=== PATIENT | female | born 1985 | race Caucasian/White ===

== ENCOUNTER 2019-07-31 15:31 | Day surgery (SDC) | payer OTHER ==
[~2019-07-31] VITALS: Ht 180.3 cm; Wt 83.5 kg
--- NOTE | 2019-08-05 07:24 | OR ---
[facility] [address] [place], [place] [address] Signed DATE OF OPERATION: 07/31/2019 SURGEON: Dany Al MD Patient of Dr. Al. PREOPERATIVE DIAGNOSIS: Possible ectopic . POSTOPERATIVE DIAGNOSIS: Ruptured right tubal and pelvic adhesions. PROCEDURE PERFORMED: Laparoscopic right salpingo-oophorectomy, lysis of adhesions, and cystoscopy. BLOOD BANK BUSINESS MANAGER: Dr. Dockery. ANESTHESIA: General. ESTIMATED BLOOD LOSS: 50 mL plus 200 mL of old blood and clots already in the pelvis. COMPLICATIONS: None. DRAINS: Olguin to bladder. FINDINGS: Normal cervix with slight blood in the vagina. Normal size and shape uterus sounding to 7 cm. The pelvis had large amount of blood and clots present with filmy adhesions on the left pelvis to the left tube and ovary and cornua of the uterus. The right tube and ovary were firmly adherent to the right pelvic sidewall. The right tube was enlarged, hemorrhagic with large blood and clots adherent to the tubo-ovarian complex of about 6 cm in size. There was also approximately 2 x 4 cm individual clot with fibrosis sitting in the anterior cul-de-sac. The right fallopian tube appeared to have an opening consistent with a Electronically Signed By: DANY AL MD 08/05/19 0724 PATIENT NAME: MARTHA PHILIP OPERATIVE REPORT DATE OF : 87 REPORT #: [id number] PHYSICIAN: DANY AL MD PCP: NO PRIMARY CARE PHYSICIAN REPORT IS CONFIDENTIAL AND NOT TO BE RELEASED WITHOUT AUTHORIZATION [facility] [address] [place], [place] [address] Signed ruptured fallopian tube; however, there was no active bleeding at this time. The liver did appear normal with no adhesions, no masses. DESCRIPTION OF PROCEDURE: The patient was brought to the operating room, placed in supine position. After adequate general anesthesia was obtained, was placed in dorsal lithotomy position, prepped and draped in usual sterile fashion. Olguin catheter was placed in the bladder and a weighted speculum was placed in the vagina. The anterior lip of the cervix was grasped with an Allis clamp and the cervix serially dilated. The Hulka clamp was carefully introduced through the cervix into the uterine cavity and attached to the anterior lip of the cervix. The Allis clamp and weighted speculum were removed. Attention was then drawn to the abdomen. A small infraumbilical skin incision was made with a scalpel after injecting the area with 0.25% Marcaine with epinephrine. Subcutaneous tissue was dissected with Metzenbaum scissors and the fascia identified, grasped with hemostats, elevated, nicked with Metzenbaum scissors and extended in transverse fashion using Metzenbaum scissors. Retention stitches of 0 Vicryl were placed in the fascia above and below the incision. The abdominal musculature and peritoneum were bluntly opened with finger dissection and S-retractor was inserted into the incision, spun in 360 degree fashion and shown no adhesions or masses and good placement in the abdomen. The Joe cannula and sleeve then entered into the abdomen under direct visualization. The S retractor removed and the balloon of the sleeve filled with air and the upper sleeve was then slid down gently against the abdominal wall and tightened in place. The retention stitches were then attached to the sleeve. Trocar was removed and the laparoscope with video attachment entered the abdomen under direct visualization. On the left side slightly below the level of the umbilicus, approximately 10 cm lateral to the midline, abdominal wall was transilluminated to avoid any vessels, then injected with 0.25% Marcaine with epinephrine, and a small skin incision made with a scalpel. 5 mm trocar and sleeve then entered the abdomen under direct visualization. The trocar was removed. The balloon filled up and a blunt grasper inserted. The same procedure was carried out on the right side. Above findings were noted. The entire pelvis was irrigated, suctioned to remove as many of the clots as possible. The large clots were removed with 10 mm spoon bill forceps using 5 mm laparoscope in a side port for visualization. When the pelvis was cleaned out as much as possible, the right tube and ovary were carefully examined. Attempt was made to remove just the right fallopian tube, but the entire complex was adherent quite well. The LigaSure bipolar [place] forceps were placed into the abdomen and the proximal portion of the tube transected by cauterizing and cutting the tube. The mesosalpinx was attempted to be cauterized and cut starting at the cephalic end and going along the tube, but because of the dense adhesions this could not be done. An Electronically Signed By: DANY AL MD 08/05/19 0724 PATIENT NAME: MARTHA PHILIP OPERATIVE REPORT DATE OF : 87 REPORT #: [id number] PHYSICIAN: DANY AL MD PCP: NO PRIMARY CARE PHYSICIAN REPORT IS CONFIDENTIAL AND NOT TO BE RELEASED WITHOUT AUTHORIZATION [address] [address] Signed attempt was made to separate the tube from the ovary, but it was very difficult to tell what was the tube and what was the ovary with all the induration and adhesions and clots and finally it was decided the tube could not be removed separately and so the infundibulopelvic ligament was identified, cauterized in several places, and cut. The peritoneum was then opened along the upper edge of the tubo-ovarian mass with the LigaSure down to the previous dissection of the proximal tube and the tubo-ovarian complex gently dissected medially away from the pelvic sidewall. Even with this taken down there were a lot of adhesions and the ureter was attempted to be identified several times, could not be seen, so the uteroovarian ligament was identified, cauterized in several places and cut, and then the tube and ovary lifted up to try to identify the ureter and dissect the peritoneum below the tubo-ovarian complex, but again this was quite edematous with peritoneal adhesions making visualization difficult. Aqua- dissection was used as well as blunt dissection. So the retroperitoneal space was then carefully examined, aqua-dissection and careful blunt dissection were used until the ureter could be identified, and once the ureter was identified the remaining adhesions holding the tube and ovary to the pelvic sidewall could then be cauterized medial to the ureter and cut so that the tube and ovary were free. The tube and ovary specimens were placed in the posterior cul-de-sac and the right pelvic sidewall carefully examined, noted to have good hemostasis, but was a large raw area. At this point, the 5 mm laparoscope was then placed in the lateral port and Endopouch placed through the infraumbilical port and the pieces of tube and ovary were placed in the bag and then the bag removed through the infraumbilical incision after removing the trocar and sleeve. The trocar and sleeve were then placed back into the incision and the 10 mm laparoscope placed back in for visualization. The entire pelvis was irrigated, suctioned, examined, noted to have good hemostasis. The ureter was again identified. Because of the large area of dissection, it was decided to confirm no damage to the ureter. So the gas was allowed to escape and the laparoscope removed and cystoscopy performed. Attention was then drawn back to vagina, where the Hulka clamp was removed, Olguin catheter removed, and 70 degree cystoscope with video attachment was placed in the urethra and entered the bladder under direct visualization using sterile water as distending medium on the way in. Bladder was filled, noted to have good filling and no blood. The patient was given fluorescein and both ureters were identified and both had good solid flow of urine into the bladder. At this point, the bladder was drained. The cystoscope removed and the Olguin catheter placed back into the bladder. The abdomen was re-insufflated. The laparoscope placed back into the abdomen and again the pelvis irrigated to remove as much of any remaining blood and this was all irrigated, suctioned, examined. The entire area examined. Because of the large area of raw space, Tisseel was sprayed over the entire area to further help with any bleeding that might occur and when this was done and again good hemostasis was noted all instruments were removed. The gas allowed to escape and the final sleeve removed. The Electronically Signed By: DANY AL MD 08/05/19 0724 PATIENT NAME: MARTHA PHILIP OPERATIVE REPORT DATE OF : 87 REPORT #: [id number] PHYSICIAN: DANY AL MD PCP: NO PRIMARY CARE PHYSICIAN REPORT IS CONFIDENTIAL AND NOT TO BE RELEASED WITHOUT AUTHORIZATION [address] [address] Signed infraumbilical fascia was closed using a running stitch of 0 Vicryl suture. Two retention stitches were tied together for further support. The 3 skin incisions were closed using subcuticular stitches of 4-0 Vicryl. The patient tolerated the procedure well, went to recovery room in good condition. The sponge, needle, and instrument count correct at the end of the procedure. Right tube and ovary with products of conception were sent to Pathology for identification. Dany Al MD MJB/MODL /[id number] Copies: ~ Electronically Signed By: DANY AL MD 08/05/19 0724 PATIENT NAME: MARTHA PHILIP OPERATIVE REPORT DATE OF : 87 REPORT #: [id number] PHYSICIAN: DANY AL MD PCP: NO PRIMARY CARE PHYSICIAN REPORT IS CONFIDENTIAL AND NOT TO BE RELEASED WITHOUT AUTHORIZATION
--- NOTE | 2019-08-07 11:12 | PATH ---
[facility] [address] [facility] [place], [place] [address] Signed SPECIMEN(S): A R OVARY, TUBE PRODUCT OF CONCEPTION SPECIMEN SOURCE: A. R OVARY, TUBE PRODUCT OF CONCEPTION CLINICAL HISTORY: Possible ectopic . FINAL PATHOLOGIC DIAGNOSIS: Fallopian tube and ovary, right, salpingo-oophorectomy: - Fallopian tube containing immature chorionic villi and blood, consistent with ectopic (tubal) . - See Comment. COMMENT: No ovary was identified during gross examination; therefore the entire specimen was submitted for histologic examination. No ovarian tissue was identified microscopically. Correlation with clinical and imaging findings is recommended. NAL:cml:C2NR MICROSCOPIC EXAMINATION: Histologic sections of all submitted blocks are examined by light microscopy. These findings, together with the gross examination, support the pathologic diagnosis. GROSS DESCRIPTION: The specimen, labeled "PE, A" and "right ovary, tube with products of conception" on the requisition, is received in formalin and consists of a 2.6 x 1.7 cm fimbriated segment of fallopian tube. The fimbriated end is open and demonstrates a 1.3 cm lumen containing soft dark red tissue and blood clot. Also within the container is a 3.5 x 3.2 x 3 cm aggregate of soft dark red tissue and blood clot. An ovary is not grossly identified. Sales Promotion Manager sections are submitted in cassettes A1-A3. SS (under the direct supervision of a pathologist) The remaining tissue is submitted in cassettes A4-A19. The Gross Description was prepared using a voice recognition system. The report was reviewed for accuracy; however, sound-alike word errors, addition and/or deletions may occur. If there is any question about this report, please contact Client Services. PATIENT NAME: MARTHA PHILIP PATHOLOGY DATE OF : 87 REPORT #: [id number] PHYSICIAN: [facility] PCP: NO PRIMARY CARE PHYSICIAN REPORT IS CONFIDENTIAL AND NOT TO BE RELEASED WITHOUT AUTHORIZATION [facility] [address] [address] Signed PERFORMING LABORATORY: The technical component was performed [place] [address] (Electric Distribution Engineer: Heidi Patel MD; CLIA# [id number]). [facility], [address] [address] (CLIA# [id number]). Diagnostician: Heaven Hernandez MD Pathologist Electronically Signed 08/07/2019 Copies: ~ PATIENT NAME: MARTHA PHILIP PATHOLOGY DATE OF : 87 REPORT #: [id number] PHYSICIAN: [facility] PATHOLOG[facility] PCP: NO PRIMARY CARE PHYSICIAN REPORT IS CONFIDENTIAL AND NOT TO BE RELEASED WITHOUT AUTHORIZATION
== END 2019-08-01 00:50 | disposition home or self-care (01) ==
LOC: DS 15:31
PROVIDERS: General Practice
PROC: 0UT54ZZ Resection of Right Fallopian Tube, Percutaneous Endoscopic Approach (ICD-10-PCS; 2019-07-31)
PROC: 0UT04ZZ Resection of Right Ovary, Percutaneous Endoscopic Approach (ICD-10-PCS; principal; 2019-07-31 18:00)
DX: O00.101 Right tubal pregnancy without intrauterine pregnancy (principal); N73.6 Female pelvic peritoneal adhesions (postinfective)
CPT/HCPCS: 00840; 85025; 86900; 86901; J0330; J1885; J2250; J2405; J2704; J3475